=== PATIENT | female | born 1995 | race Caucasian/White ===

== ENCOUNTER 2017-05-21 22:06 | Emergency (ER) | payer OTHER ==
[~2017-05-21] VITALS: Ht 165.1 cm; Wt 98.4 kg
--- OUTSIDE RECORDS SUMMARY | ~2017-05-21 | XMS ---
Demographics + + + | Address | [address] | | | [place] [address] | + + + | Preferred Language | Unknown | + + + | Marital Status | Unknown | + + + | Adventist Affiliation | Unknown | + + + | Race | Unknown | + + + | Ethnic Group | Unknown | + + + Author + + + | Author | [facility] | + + + | Organization | [facility] | + + + | Address | [address] | | | [place] [address] | + + + | Phone | | + + + Care Team Providers + + + + | Care Ball Mill Mixer Name | Role | Phone | + + + + Unavailable | Unavailable | + + + + PROBLEMS +---------+ + + +--------+ +---------+ | Type | Condition | ICD9-CM | [id number] | Onset | Condition | SNOMED | | | | Code | Code | Dates | Status | Code | +---------+ + + +--------+ +---------+ | Problem | Spider | | T63.301A | | Active | | | | bite | | | | | | +---------+ + + +--------+ +---------+ ALLERGIES + + + + +--------+ | Substance | Reaction | Event Type | Date | Status | + + + + +--------+ | Tramadol HCl | rash | Drug Allergy | Jan, | Active | + + + + +--------+ | Cod Liver Oil | Unknown | Drug Allergy | Jan, | Active | + + + + +--------+ SOCIAL HISTORY No smoking Hx information available PLAN OF CARE + +---------+ | Activity | Details | + +---------+ +---+ | | +---+ + + + | Follow Up | prn Reason:null | + + + VITAL SIGNS + + + + | Height | 65 in | 2017-02-03 | + + + + | Weight | 219 lbs | 2017-02-03 | + + + + | BMI | 36.44 kg/m2 | 2017-02-03 | + + + + | Temperature | 97.9 degrees Fahrenheit | 2017-02-03 | + + + + | Heart Rate | 83 /min | 2017-02-03 | + + + + | Blood pressure systolic | 113 mm Hg | 2017-02-03 | + + + + | Blood pressure diastolic | 88 mm Hg | 2017-02-03 | + + + + MEDICATIONS No Known Medications RESULTS No Results PROCEDURES + + + + + | Procedure | Date Ordered | Related Diagnosis | Body Site | + + + + + | Est Level III | Feb 03, 2017 | | | | Intermediate | | | | + + + + + | DSCHRG MED/CURRENT | Feb 03, 2017 | | | | MED MERGE | | | | + + + + + | DOC MEDS VERIFIED | Feb 03, 2017 | | | | W/PT OR RE | | | | + + + + + IMMUNIZATIONS No Known Immunizations"
--- OUTSIDE RECORDS SUMMARY | ~2017-05-21 | XMS ---
Demographics + + + | Address | [address] | | | [place] [address] | + + + | Preferred Language | Unknown | + + + | Marital Status | Unknown | + + + | Yarsanism Affiliation | Unknown | + + + | Race | Unknown | + + + | Ethnic Group | Unknown | + + + Author + + + | Author | [facility] | + + + | Organization | [facility] | + + + | Address | [address] | | | [place] [address] | + + + | Phone | | + + + Care Team Providers + + + + | Care Astronomy Department Chair Name | Role | Phone | + + + + Unavailable | Unavailable | + + + + PROBLEMS +---------+ + + +--------+ +---------+ | Type | Condition | ICD9-CM | [id number] | Onset | Condition | SNOMED | | | | Code | Code | Dates | Status | Code | +---------+ + + +--------+ +---------+ | Problem | Spider | | T63.301A | | Active | | | | bite | | | | | | +---------+ + + +--------+ +---------+ ALLERGIES Unknown Allergies SOCIAL HISTORY No smoking Hx information available PLAN OF CARE VITAL SIGNS MEDICATIONS Unknown Medications RESULTS No Results PROCEDURES No Known procedures IMMUNIZATIONS No Known Immunizations"
--- OUTSIDE RECORDS SUMMARY | ~2017-05-21 | XMS ---
Demographics + + + | Address | [address] | | | [place] [address] | + + + | Preferred Language | Unknown | + + + | Marital Status | Unknown | + + + | Church Affiliation | Unknown | + + + | Race | Unknown | + + + | Ethnic Group | Unknown | + + + Author + + + | Author | [facility] | + + + | Organization | [facility] | + + + | Address | [address] | | | [place] [address] | + + + | Phone | | + + + Care Team Providers + + + + | Care Media Director Name | Role | Phone | + + + + Unavailable | Unavailable | + + + + PROBLEMS +---------+ + + +--------+ +---------+ | Type | Condition | ICD9-CM | [id number] | Onset | Condition | SNOMED | [...]
--- OUTSIDE RECORDS SUMMARY | ~2017-05-21 | XMS ---
Demographics + + + | Address | [address] | [address] | | | [place] [address] | + + + | Preferred Language | Unknown | + + + | Marital Status | Unknown | + + + | Jehovah'S Witness Affiliation | Unknown | + + + | Race | Unknown | + + + | Ethnic Group | Unknown | + + + Author + + + | Author | [facility] | + + + | Organization | [facility] | + + + | Address | [address] | | | [place] [address] | + + + | Phone | | + + + Care Team Providers + + + + | Care Christian Science Healer Name | Role | Phone | + + + + Unavailable | Unavailable | + + + + PROBLEMS +---------+ + + +--------+ +---------+ | Type | Condition | ICD9-CM | [id number] | Onset | Condition | SNOMED | [...]
[2017-05-21] MEDS ORDERED: MIRENA1 EACH (22:16)
[2017-05-21] MEDS ORDERED: PREDNISONE20 MG PO (23:26)
[2017-05-21] MEDS ORDERED: HYDROXYZINE HCL50 MG PO (23:26)
== END 2017-05-21 23:47 | disposition home or self-care (01) ==
LOC: ED 22:06
DX: L50.9 Urticaria, unspecified (principal); F17.200 Nicotine dependence, unspecified, uncomplicated; Z88.5 Allergy status to narcotic agent; Z88.8 Allergy status to other drugs, medicaments and biological substances; Z79.899 Other long term (current) drug therapy
CPT/HCPCS: 96372; 99283; J1200; J7512

== ENCOUNTER 2017-06-25 17:46 | Emergency (ER) | payer OTHER ==
[~2017-06-25] VITALS: Ht 165.1 cm; Wt 98.4 kg
[~2017-06-25 17:46] MED LIST: BACTRIM DS TAB1 EACH PO; HYDROXYZINE HCL50 MG PO; MIRENA1 EACH; NORCO 5-325 TA1 EACH PO; PREDNISONE20 MG PO
== END 2017-06-25 18:39 | disposition home or self-care (01) ==
LOC: ED 17:46
DX: L02.31 Cutaneous abscess of buttock (principal)
CPT/HCPCS: 99282

== ENCOUNTER 2019-06-09 00:10 | Inpatient (IN) | payer OTHER ==
--- NOTE | 2019-06-10 09:43 | PR ---
[facility] [address] [place], [place] [address] Signed PP Progress Notes Datetime Report Generated by CPN: 06/10/2019 09:43 SUBJECTIVE: [id number] Pain: Within normal limits Nausea/Vomiting: Denies Flatus: Yes Bowel Movement: No Vital Signs: [id number] Vital Signs: Reviewed; Within Normal Limits EXAM: [id number] Cardiovascular: Normal Respiratory: Normal Abdomen/Uterus: Normal Lochia: Normal Vulva/Perineum: Not Done Breasts: Not Done CVA Tenderness: Normal Extremities: Normal Incision: Not Applicable Progress: Normal Exam Comments: Fundus firm U-2 nontender IMPRESSION/PLAN/PROCEDURES: [id number] Impression: Normal progression Plan: Discharge Progress Notes: Pt seen and examined. Doing well. Ambulating, voiding, and tolerating full diet. Pain and lochia minimal. well. Baby is Rh neg and rhogam not required. Pt desires d/c home today. No other questions or concerns. Signing Physician: Alejandro Mcghee DO Copies: ~ *Electronically Signed* 06/10/19 0943 ALEJANDRO MCGHEE DO PATIENT NAME: KATIE MARRERO PROGRESS NOTE DATE OF : 89 PHYSICIAN: ALEJANDRO MCGHEE DO RPT #: [id number] REPORT IS CONFIDENTIAL AND NOT TO BE RELEASED WITHOUT AUTHORIZATION
== END 2019-06-10 14:25 | disposition home or self-care (01) | DRG 806 ==
LOC: FBC 00:10
PROVIDERS: ADMIT Obstetrics & Gynecology
PROC: 10E0XZZ Delivery of Products of Conception, External Approach (ICD-10-PCS; principal; 2019-06-09)
PROC: 0KQM0ZZ Repair Perineum Muscle, Open Approach (ICD-10-PCS; 2019-06-09)
PROC: 3E0P7VZ Introduction of Hormone into Female Reproductive, Via Natural or Artificial Opening (ICD-10-PCS; 2019-06-09)
PROC: 10907ZC Drainage of Amniotic Fluid, Therapeutic from Products of Conception, Via Natural or Artificial Opening (ICD-10-PCS; 2019-06-09)
PROC: 00HU33Z Insertion of Infusion Device into Spinal Canal, Percutaneous Approach (ICD-10-PCS; 2019-06-09)
PROC: 3E0R3BZ Introduction of Anesthetic Agent into Spinal Canal, Percutaneous Approach (ICD-10-PCS; 2019-06-09)
DX: O48.0 Post-term pregnancy (principal); O99.324 Drug use complicating childbirth; Z37.0 Single live birth; F12.90 Cannabis use, unspecified, uncomplicated; O69.81X0 Labor and delivery complicated by cord around neck, without compression, not applicable or unspecified; O70.1 Second degree perineal laceration during delivery; Z3A.40 40 weeks gestation of pregnancy; Z88.8 Allergy status to other drugs, medicaments and biological substances; Z88.5 Allergy status to narcotic agent
CPT/HCPCS: 36415; 85027; A9270; J2795

== ENCOUNTER 2019-11-21 08:36 | Emergency (ER) | payer OTHER ==
[~2019-11-21] VITALS: Ht 162.6 cm; Wt 96.6 kg
[2019-11-21] MEDS ORDERED: ZOFRAN4 MG PO (11:37)
[2019-11-21] MEDS ORDERED: PEPCID20 MG PO (11:37)
== END 2019-11-21 12:13 | disposition home or self-care (01) ==
LOC: ED 08:36
DX: R10.84 Generalized abdominal pain (principal); Z88.5 Allergy status to narcotic agent; Z88.8 Allergy status to other drugs, medicaments and biological substances
CPT/HCPCS: 76705; 80053; 81001; 83690; 84703; 85025; 96374; 96375; 99284-25; J2405; J7030

== ENCOUNTER 2019-12-07 22:34 | Emergency (ER) | payer OTHER ==
[~2019-12-07] VITALS: Ht 162.6 cm; Wt 97.5 kg
[~2019-12-07 22:34] MED LIST changes: +PEPCID20 MG PO; +ZOFRAN4 MG PO
--- OUTSIDE RECORDS SUMMARY | 2019-12-07 22:38 | XMS ---
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 Musa VISIT COUNT (12 MO.) 2 [facility] TOTAL 2 NOTE: Visits indicate total known visits. ED/UCC VISIT TRACKING (12 MO.) 12/07/2019 22:35 [facility] [place] TYPE: Emergency COMPLAINT: - BURN 11/21/2019 08:37 [facility] [place] TYPE: Emergency COMPLAINT: - VOMITING, ABD PAIN DIAGNOSES: - Generalized abdominal pain - Allergy status to other drugs, medicaments and biological sub - Unspecified abdominal pain - Allergy status to narcotic agent status INPATIENT VISIT TRACKING (12 MO.) 06/09/2019 00:10 [facility] [place] TYPE: [facility] COMPLAINT: - INDUCTION DIAGNOSES: - 40 weeks gestation of - Allergy status to narcotic agent status - Labor and delivery complicated by cord around neck, without c - Drug use complicating childbirth - Allergy status to narcotic agent status - Allergy status to other drugs, medicaments and biological sub - Second degree perineal laceration during delivery - Cannabis use, unspecified, uncomplicated - Labor and delivery complicated by cord around neck, without c - Post-term - Second degree perineal laceration during delivery - Allergy status to other drugs, medicaments and biological sub - 40 weeks gestation of - Single live - Cannabis use, unspecified, uncomplicated - Drug use complicating childbirth - Single live [email or web address]
== END 2019-12-07 23:41 | disposition home or self-care (01) ==
LOC: ED 22:34
DX: T23.221A Burn of second degree of single right finger (nail) except thumb, initial encounter (principal); T23.151A Burn of first degree of right palm, initial encounter; Z88.5 Allergy status to narcotic agent; Z88.8 Allergy status to other drugs, medicaments and biological substances; Z79.899 Other long term (current) drug therapy; X19.XXXA Contact with other heat and hot substances, initial encounter
CPT/HCPCS: 99283